=== PATIENT | male | born 1980 | race Caucasian/White ===

== ENCOUNTER 2020-08-15 14:57 | Emergency (ER) | payer BC ==
--- NOTE | 2020-08-15 15:03 | ER Document Report ---
ED Medical Screen (RME) - General Chief Complaint: Fall Stated Complaint: FALL,NECK INJURY Time Seen by Provider: 08/15/20 15:00 Mode of Arrival: Ambulatory Information source: Patient Notes: 39-year-old male presented to ED for complaint of right shoulder and clavicle pain. He states he fell off of a electric skateboard injuring his right clavicle and shoulder. He states he cannot move the right shoulder. He is alert oriented respirations regular nonlabored speaking in full sentences. He does have abrasions to the right thigh and the right lateral chest. I have greeted and performed a rapid initial assessment of this patient. A comprehensive ED assessment and evaluation of the patient, analysis of test results and completion of medical decision making process will be conducted by an additional ED providers.
[2020-08-15 15:08] VITALS: BP 124/85
--- NOTE | 2020-08-15 15:33 | RADIOLOGY REPORT (SQ) ---
EXAM DESCRIPTION: CLAVICLE RIGHT IMAGES COMPLETED DATE/TIME: 08/15/2020 3:18 pm REASON FOR STUDY: fall off electric scateboard COMPARISON: None. NUMBER OF VIEWS: Two views. TECHNIQUE: Frontal and angled images were acquired of the right clavicle. LIMITATIONS: None. FINDINGS: MINERALIZATION: Normal. BONES: There is a comminuted fracture of the middle 3rd of the clavicle with 1 full shaft width infer ior displacement of the distal fracture fragment and approximately 2 cm of foreshortening. SOFT TISSUES: No obvious swelling or foreign body. OTHER: No other significant finding. IMPRESSION: Comminuted fracture of the clavicle with 1 full shaft width inferior displacement of the dominant distal fragment and approximately 2 cm of foreshortening. TECHNICAL DOCUMENTATION: JOB ID: [id number] 2010 [employer]- All Rights Reserved Reading location - IP/workstation name: [email or web address]
--- NOTE | 2020-08-15 15:34 | RADIOLOGY REPORT (SQ) ---
EXAM DESCRIPTION: SHOULDER RIGHT 2 OR MORE VIEWS IMAGES COMPLETED DATE/TIME: 08/15/2020 3:18 pm REASON FOR STUDY: fall off electric scateboard COMPARISON: None. NUMBER OF VIEWS: Two views. TECHNIQUE: Frontal and Y-view images acquired of the right shoulder. LIMITATIONS: None. FINDINGS: MINERALIZATION: Normal. BONES: There is a comminuted fracture of the clavicle with 1 full shafts width inferior displacement of the dominant distal fragment. JOINTS: No dislocation. VISUALIZED LUNGS AND RIBS: No pneumothorax. No rib fracture. SOFT TISSUES: No radiopaque foreign body. OTHER: No other significant finding. IMPRESSION: Comminuted fracture of the middle 3rd of the clavicle. TECHNICAL DOCUMENTATION: JOB ID: [id number] 2010 [employer]- All Rights Reserved Reading location - IP/workstation name: [email or web address]
--- NOTE | 2020-08-15 15:44 | ER Document Report ---
ED Fall - General Chief Complaint: Fall Stated Complaint: FALL,NECK INJURY Time Seen by Provider: 08/15/20 15:00 Mode of Arrival: Ambulatory Information source: Patient Notes: 39-year-old male presented to ED for complaint of right shoulder and clavicle pain. He states he fell off of a electric skateboard injuring his right clavicle and shoulder. He states he cannot move the right shoulder. He is alert oriented respirations regular nonlabored speaking in full sentences. He does have abrasions to the right thigh and the right lateral chest. - HPI Occurred: This afternoon Where: Outdoors, Public place Context: Fell from standing - electric scate board Associated symptoms: None Location of injury/pain: Shoulder, Other - clavicle right Quality of pain: Sharp Severity: Moderate Pain Level: 3 Past Medical History - General Information source: Patient - Social History Smoking Status: Former Smoker Frequency of alcohol use: Social Drug Abuse: Marijuana Occupation: self imployed Lives with: Family Family History: Reviewed & Not Pertinent Patient has suicidal ideation: No Patient has homicidal ideation: No - Past Medical History Cardiac Medical History: Reports: None Pulmonary Medical History: Reports: None EENT Medical History: Reports: None Neurological Medical History: Reports: None Endocrine Medical History: Reports: None Renal/ Medical History: Reports: None Malignancy Medical History: Reports None GI Medical History: Reports: None Musculoskeletal Medical History: Reports Hx Musculoskeletal Trauma Skin Medical History: Reports None Psychiatric Medical History: Reports: None Traumatic Medical History: Reports: Hx Fractures - ribs Infectious Medical History: Reports: None Surgical Hx: Negative Past Surgical History: Reports: None - Immunizations Immunizations up to date: No Hx Diphtheria, Pertussis, Tetanus Vaccination: No Review of Systems - Review of Systems Constitutional: No symptoms reported EENT: No symptoms reported Cardiovascular: No symptoms reported Respiratory: No symptoms reported Gastrointestinal: No symptoms reported Genitourinary: No symptoms reported Male Genitourinary: No symptoms reported Musculoskeletal: Joint pain - Right clavicle fracture right shoulder pain, Muscle pain, Muscle stiffness Skin: No symptoms reported Hematologic/Lymphatic: No symptoms reported Neurological/Psychological: No symptoms reported -: Yes All other systems reviewed and negative Physical Exam - Vital signs Vitals: Temp Pulse Resp BP Pulse Ox 98.0 F 64 20 124/85 100 08/15/20 15:06 08/15/20 15:06 08/15/20 15:06 08/15/20 15:06 08/15/20 15:06 Interpretation: Normal - General General appearance: Appears well, Alert - HEENT Head: Normocephalic, Atraumatic Eyes: Normal Pupils: PERRL - Respiratory Respiratory status: No respiratory distress Chest status: Nontender Breath sounds: Normal Chest palpation: Normal - Cardiovascular Rhythm: Regular Heart sounds: Normal auscultation Murmur: No - Abdominal Inspection: Normal Distension: No distension Bowel sounds: Normal Tenderness: Nontender Organomegaly: No organomegaly - Back Back: Normal, Nontender - Extremities General upper extremity: Nontender, Normal color, Normal temperature General lower extremity: Normal inspection, Nontender, Normal color, Normal ROM, Normal temperature, Normal weight bearing. No: Pete's sign Shoulder: Tender, Limited ROM - Fractured right clavicle - Neurological Neuro grossly intact: Yes Cognition: Normal Orientation: AAOx4 [place] Coma Scale Eye Opening: Spontaneous [place] Coma Scale Verbal: Oriented [place] Coma Scale Motor: Obeys Commands [place] Coma Scale Total: 15 Speech: Normal Motor strength normal: LUE, RUE, LLE, RLE Sensory: Normal - Psychological Associated symptoms: Normal affect, Normal mood - Skin Skin Temperature: Warm Skin Moisture: Dry Skin Color: Normal Course - Re-evaluation Re-evalutation: 08/15/20 22:23 X-ray was discussed with patient. I did call Dr. Leija due to the fracture of his clavicle. Dr. Leija stated he should be immobilized and follow-up with him on Thursday. I did discuss this with patient. He stated he cannot wait till Thursday because he would be going home on Thursday. I did tell him that if he was going home on Thursday he should call his local orthopedic today or tomorrow to schedule an appointment. His did call the local orthopedic from his home town and they did schedule him an appointment for tomorrow. I did give the patient a CD of the x-ray as well as written report. Patient was given a Percocet while in the emergency room and discharged home with a Medora dispense pack for the pain tonight. He was treated with a shoulder immobilizer and instructed to ice the area the shoulder still as much as he could. Patient verbalized understanding and agreement with treatment plan and patient was discharged home. Patient stated that he was going to pick pulling machine operator his daughter and leave right away so that he can get home tonight and go to the family dinner service specialist tomorrow. - Vital Signs Vital signs: Temp Pulse Resp BP Pulse Ox 98.0 F 64 20 124/85 100 08/15/20 15:06 08/15/20 15:06 08/15/20 15:06 08/15/20 15:06 08/15/20 15:06 - Diagnostic Test Radiology reviewed: Image reviewed, Reports reviewed Discharge - Discharge Clinical Impression: Right clavicle fracture comminuted Condition: Stable Disposition: HOME, SELF-CARE Additional Instructions: Fractured Clavicle You have a broken collarbone (clavicle). This usually heals in three to six weeks, depending on the age of the patient and the severity of the fracture. Even badly crooked collarbone fractures are usually not "set" or operated on, just protected until healing is complete. Usual initial treatment is rest and ice packs. A clavicle strap is placed for most collarbone fractures, but some do better with only a sling. The physician will match the treatment to your fracture. If a clavicle strap was fitted, keep it in place. It may be removed for bathing or for washing the strap after the first week. You may adjust the tightness of the strap with the Velcro strips. It should not be so tight that the hands swell or go numb. No heavy lifting, work requiring the arms to be above the head, or school P.E. until healing is complete! Call the doctor or return at once if pain or swelling become severe, or if numbness develops in either arm. Oral Narcotic Medication You have been given a prescription for pain control. This medication is a narcotic. It's best taken with food, as nausea can result if taken on an empty stomach. Don't operate machinery or drive within six hours of taking this medication. Do not combine this medicine with alcohol, or with any medication which can cause sedation (such as cold tablets or sleeping pills) unless you get permission from the physician. Narcotics tend to cause constipation. If possible, drink plenty of fluids and eat a diet high in fiber and fruits. Sling to be Used You are to use a sling. This is to rest the area, and to prevent it from hanging downward. Use this sling for at least 48 hours (or longer if so ins tructed by the doctor). Some types of splints will break if not supported by the sling, so the sling must be used as long as the splint. Ice can be placed inside the sling over the injured area. Once you remove the sling, you should not encounter pain when you use the arm and hand. If you do feel pain beneath the cast or splint, you must continue use of the sling. Ibuprofen Ibuprofen is an excellent, safe drug for pain control. In addition, it has potent antiinflammatory effects which are beneficial, especially in the treatment of injuries, arthritis, or tendonitis. It's best to take ibuprofen with food. Persons with ulcer disease or allergy to aspirin should notify their physician of this before taking ibuprofen. Take the medication exactly as prescribed. Don't take additional doses unless instructed to do so by your doctor. If you develop wheezing, shortness of breath, hives, faintness, stomach pain, vomiting, or dark black stools, return for re-evaluation at once. FOLLOW-UP CARE: If you have been referred to a physician for follow-up care, call the physicians office for an appointment as you were instructed or within the next two days. If you experience worsening or a significant change in your symptoms, notify the physician immediately or return to the Emergency Department at any time for re-evaluation.
[2020-08-15] MEDS ORDERED: OXYCODONE-ACETAMINOPHEN 5-325 MG TABLET PO ONE (15:59)
[2020-08-15] MEDS ORDERED: HYDROCODONE/ACETAMINOPHEN 5-325 MG (6 TAB/ER DISP) PO PRN (16:04)
== END 2020-08-15 16:27 | disposition home or self-care (01) ==
LOC: ER 14:57
DX: S42.021A Displaced fracture of shaft of right clavicle, initial encounter for closed fracture (principal); V00.131A Fall from skateboard, initial encounter; Y93.51 Activity, roller skating (inline) and skateboarding; Y92.89 Other specified places as the place of occurrence of the external cause
CPT/HCPCS: 99283